=== PATIENT | male | born 1960 | race Hispanic/Latino ===

== ENCOUNTER 2021-05-12 14:17 | Emergency (ER) | payer BC ==
[~2021-05-12] VITALS: Ht 152.4 cm; Wt 63.5 kg
[2021-05-12 14:31] VITALS: BP 146/89
[2021-05-12] MEDS ORDERED: SULFAMETHOX-TMP DS 800/160 TAB ONE (14:35)
[2021-05-12] MEDS ORDERED: SULF1TAB42 PO (14:37)
[2021-05-12] MEDS ORDERED: SULFAMETHOX-TMP DS 800/160 TAB PO SCH (15:00)
== END 2021-05-12 14:43 | disposition home or self-care (01) ==
LOC: EDH 14:17
DX: L03.114 Cellulitis of left upper limb (principal)